=== PATIENT | male | born 1985 | race Caucasian/White ===

== ENCOUNTER → 2024-09-24 16:59 | Outpatient (REF) | payer BC, SELFPAY ==
[2024-09-24 17:38] LABS: % Eosinophils 6.5 % (0-6); % Immature Granulocytes 0.5 % (0-0.5); % Lymphocytes 25.3 % (20.5-51.1); % Monocytes 6.7 % (1.7-9.3); Absolute Basophils 0.1 10^3/uL (0-0.2); Absolute Eosinophils 0.5 10^3/uL (0-0.7); Absolute Lymphocytes 2.1 10^3/uL (1.2-3.4); Absolute Monocytes 0.6 10^3/uL (0.1-0.6); Hemoglobin 14.2 g/dL (13.0-18.0); Mean Corp Hgb Conc. 33.8 g/dL (33.0-37.0); Mean Corpuscular Volume 82.8 fL (80.0-94.0); Mean Platelet Volume 9.4 fL (7.4-10.4); Nucleated Red Blood Cells % 0 % (-); Platelet Count 400 10^3/uL (130-400); Red Blood Cell Count 5.07 10^6/uL (4.70-6.10); Red Cell Dist. Width 13.7 % (11.5-14.5); White Blood Cell Count 8.3 10^3/uL (4.8-10.8)
[2024-09-24 17:59] LABS: ALT (SGPT) 24 U/L (0-50); AST (SGOT) 23 U/L (17-59); Albumin 4.9 g/dl (3.5-5.0); Alkaline Phosphatase 61 U/L (38-126); Blood Urea Nitrogen 14 mg/dl (9-20); Calcium 9.7 mg/dl (8.4-10.2); Carbon Dioxide 28 mmol/L (22-30); Chloride 99 mmol/L (98-107); Glucose 83 mg/dl (70-99); Potassium 4.4 mmol/L (3.5-5.1); Sodium 138 mmol/L (135-145); Total Bilirubin 0.6 mg/dl (0.2-1.3); Total Protein 7.4 g/dl (6.3-8.2); eGFR > 60.00
[2024-09-24 18:15] LABS: Vitamin D, 25-OH*** 50.9 ng/mL (30-80)
[2024-09-24 18:29] LABS: TSH Reflex To Free T4 2.64 uIU/ml (0.47-4.68)
== END ==
LOC: REG 16:59
PROVIDERS: FAMILY PHYSICIAN Internal Medicine
DX: F33.1 Major depressive disorder, recurrent, moderate (principal); F41.1 Generalized anxiety disorder; R41.840 Attention and concentration deficit; Z51.81 Encounter for therapeutic drug level monitoring; Z79.899 Other long term (current) drug therapy
CPT/HCPCS: 36415; 80053; 82306; 84443; 85025

== ENCOUNTER → 2024-10-15 14:26 | Outpatient (REF) | payer BC, SELFPAY ==
[2024-10-15 15:33] LABS: % Basophils 0.9 % (0-2); % Eosinophils 2.3 % (0-6); % Immature Granulocytes 0.4 % (0-0.5); % Lymphocytes 22.3 % (20.5-51.1); % Monocytes 7.5 % (1.7-9.3); % Neutrophils 66.6 % (42.2-75.2); Absolute Basophils 0.1 10^3/uL (0-0.2); Absolute Eosinophils 0.2 10^3/uL (0-0.7); Absolute Lymphocytes 1.8 10^3/uL (1.2-3.4); Absolute Monocytes 0.6 10^3/uL (0.1-0.6); Absolute Neutrophils 5.3 10^3/uL (1.4-6.5); Hematocrit 42.4 % (39.0-52.0); Hemoglobin 14.4 g/dL (13.0-18.0); Mean Corpuscular Hgb 28.6 pg (27.0-31.0); Mean Corpuscular Volume 84.1 fL (80.0-94.0); Mean Platelet Volume 9.9 fL (7.4-10.4); Nucleated Red Blood Cells % 0 % (-); Platelet Count 412 10^3/uL (130-400); Red Blood Cell Count 5.04 10^6/uL (4.70-6.10); Red Cell Dist. Width 13.4 % (11.5-14.5)
[2024-10-15 16:02] LABS: ALT (SGPT) 28 U/L (0-50); AST (SGOT) 28 U/L (17-59); Alkaline Phosphatase 60 U/L (38-126); Blood Urea Nitrogen 17 mg/dl (9-20); Calcium 9.4 mg/dl (8.4-10.2); Carbon Dioxide 24 mmol/L (22-30); Chloride 103 mmol/L (98-107); Glucose 82 mg/dl (70-99); Potassium 4.4 mmol/L (3.5-5.1); Sodium 140 mmol/L (135-145); Total Bilirubin 0.4 mg/dl (0.2-1.3); Total Protein 7.5 g/dl (6.3-8.2); eGFR > 60.00
== END ==
LOC: REG 14:26
PROVIDERS: ATTENDING PHYSICIAN Internal Medicine; FAMILY PHYSICIAN Internal Medicine
DX: K57.92 Diverticulitis of intestine, part unspecified, without perforation or abscess without bleeding (principal)
CPT/HCPCS: 36415; 74177; 80053; 85025; Q9967

== ENCOUNTER 2025-03-19 18:22 | Emergency (ER) | payer BC, SELFPAY ==
[2025-03-19 18:48] LABS: % Basophils 0.6 % (0-2); % Eosinophils 1.5 % (0-6); % Immature Granulocytes 0.1 % (0-0.5); % Lymphocytes 32.6 % (20.5-51.1); % Monocytes 7.2 % (1.7-9.3); Absolute Basophils 0.1 10^3/uL (0-0.2); Absolute Eosinophils 0.1 10^3/uL (0-0.7); Absolute Lymphocytes 2.8 10^3/uL (1.2-3.4); Absolute Monocytes 0.6 10^3/uL (0.1-0.6); Hemoglobin 14.4 g/dL (13.0-18.0); Mean Corp Hgb Conc. 34.3 g/dL (33.0-37.0); Mean Corpuscular Volume 84.7 fL (80.0-94.0); Mean Platelet Volume 9.6 fL (7.4-10.4); Nucleated Red Blood Cells % 0 % (-); Platelet Count 353 10^3/uL (130-400); Red Blood Cell Count 4.96 10^6/uL (4.70-6.10); Red Cell Dist. Width 12.9 % (11.5-14.5); White Blood Cell Count 8.6 10^3/uL (4.8-10.8)
[2025-03-19 19:06] LABS: ALT (SGPT) 28 U/L (0-50); AST (SGOT) 26 U/L (17-59); Albumin 5.1 g/dl (3.5-5.0); Alkaline Phosphatase 62 U/L (38-126); Blood Urea Nitrogen 20 mg/dl (9-20); Calcium 9.2 mg/dl (8.4-10.2); Carbon Dioxide 23 mmol/L (22-30); Chloride 105 mmol/L (98-107); Glucose 97 mg/dl (70-99); Potassium 4.1 mmol/L (3.5-5.1); Sodium 139 mmol/L (135-145); Total Bilirubin 0.8 mg/dl (0.2-1.3); Total Protein 7.5 g/dl (6.3-8.2); eGFR > 60.00
[2025-03-19 19:16] LABS: Troponin I < 0.012 ng/ml
[2025-03-19 20:27] VITALS: BMI 34.4
--- NOTE | 2025-03-19 20:58 | ED.GENMED ---
History of Present Illness
<Javier Villar MD, Resident - Last Filed: 03/19/25 23:25>
General
Chief Complaint: Numbness
Time Seen by Provider: 03/19/25 20:56
History of Present Illness
History of Present Illness:
This is a 39-year-old male who presents to the ER complaining of bilateral toes numbness and tingling. Patient reports symptoms started 2 weeks ago while he was walking. He reports symptoms are intermittent. Today, he noticed left arm numbness.
In addition he reports headache and neck pain. Reports history of hypertensive urgency in the past. He denies fever, chills. He denies weakness bilateral upper and lower extremity.
Past History
<Javier Villar MD, Resident - Last Filed: 03/19/25 23:25>
Social History
Tobacco: Non-smoker
Alcohol: Occasional
Drug: None
Personal:
Phy Exam
<Javier Villar MD, Resident - Last Filed: 03/19/25 23:25>
General Physical Exam
General Presentation: well appearing and no apparent distress
General Mental: alert
Cardiovascular Exam
Cardiovascular Exam: regular rate/rhythm, no edema and no murmur
Pulmonary Exam
Pulmonary Exam: lungs clear and no respiratory distress
Neurological Exam
Neurological Exam: alert, oriented x3, CN II-XII intact, normal reflexs and speech normal
Musculoskeletal Exam
Musculoskeletal Exam: full ROM and no edema
Psychiatric Exam
Psychiatric Exam: normal mood/affect
Course
<Javier Villar MD, Resident - Last Filed: 03/19/25 23:25>
Orders/Labs/Results
Orders:
Orders
03/19/25 18:32
Electrocardiogram (*1) Urgent
Reason for Study: Vertigo / Dizzy
03/19/25 18:33
EKG- Treatment ONCE
03/19/25 18:43
CBC/With Diff [Complete Blood Count/With Diff] Urgent
Comprehensive Metabolic Panel Urgent
Troponin I Urgent
03/19/25 22:36
Troponin I Urgent
Abnormal Lab Results
03/19/25
18:43
Albumin 5.1 H g/dl
(3.5-5.0)
03/19/25 18:43
03/19/25 18:43
Vital Signs
Initial and Last Documented VS:
Initial Vital Signs
Temp Pulse Resp Pulse Ox
98.7 F 73 16 100
03/19/25 18:28 03/19/25 18:28 03/19/25 18:28 03/19/25 18:28
Last Documented Vital Signs
Temp Pulse Resp BP Pulse Ox
98.7 F 68 16 127/81 97
03/19/25 18:28 03/19/25 23:00 03/19/25 23:00 03/19/25 23:00 03/19/25 23:00
<Grady Llanes MD - Last Filed: 03/19/25 21:53>
Orders/Labs/Results
Orders:
Orders
03/19/25 18:32
Electrocardiogram (*1) Urgent
Reason for Study: Vertigo / Dizzy
03/19/25 18:33
EKG- Treatment ONCE
03/19/25 18:43
CBC/With Diff [Complete Blood Count/With Diff] Urgent
Comprehensive Metabolic Panel Urgent
Troponin I Urgent
03/19/25 22:36
Troponin I Urgent
Abnormal Lab Results
03/19/25
18:43
Albumin 5.1 H g/dl
(3.5-5.0)
03/19/25 18:43
03/19/25 18:43
Vital Signs
Initial and Last Documented VS:
Initial Vital Signs
Temp Pulse Resp Pulse Ox
98.7 F 73 16 100
03/19/25 18:28 03/19/25 18:28 03/19/25 18:28 03/19/25 18:28
Last Documented Vital Signs
Temp Pulse Resp BP Pulse Ox
98.7 F 68 16 127/81 97
03/19/25 18:28 03/19/25 23:00 03/19/25 23:00 03/19/25 23:00 03/19/25 23:00
<Javier Villar MD, Resident - Last Filed: 03/19/25 23:25>
MDM/Problems Addressed
MDM/Problems Addressed:
39-year-old male presents to the ED complaining of left arm and bilateral toe numbness and tingling sensation. In addition, he reports chest pain, and headache. EKG on presentation unremarkable. CBC, CMP unremarkable. Troponin normal. Will
recheck a troponin level, if negative will encourage outpatient workup with his PCP.
<Javier Villar MD, Resident - Last Filed: 03/19/25 23:25>
*Critical Care Note
Total Time (30-74mins, 75-104mins- exclusive of procedures): Not Applicable
ED Attending Note
<Javier Villar MD, Resident - Last Filed: 03/19/25 23:25>
-
Portions of this chart may have been created with voice recognition software.� Occasional wrong word or��sound alike� substitutions may have occurred due to the inherent limitations of voice recognition software.
<Grady Llanes MD - Last Filed: 03/19/25 21:53>
ED Attending Note
Patient seen and examined by attending physician: Yes
I performed a history and physical exam of patient and discussed management with resident, I reviewed resident's note and agree with documented findings and plan of care.: Yes
ED Attending Note:
I have seen and evaluated the patient with a [id number] encounter. I have spoken to the resident and involved in the medical history, the physical exam, medical decision making.
Evaluation and management service: agree unless noted differently below.
Results interpretation: agree unless noted differently below.
Focused HPI: 39-year-old male presents to the ER for evaluation of left arm paresthesias/numbness. Patient reports that earlier this afternoon he had an episode where his left hand felt numb and he had tingling in his left arm. He says that at the
same time he had some pressure in his left chest and neck. He says he had a headache. Denies any other complaints. He says that over the past week or 2 he noticed he had some occasional numbness in his toes particular in the right foot and that
he felt his feet are colder than usual.
Physical exam: Awake and alert not in distress. Vital signs normal. He has no cardiac rubs gallops or murmurs. Lungs clear to auscultation. Motor and sensory intact in all extremities�specifically intact radial, median, ulnar nerve distribution
left upper extremity with strong crm coordinator, intact objective sensory exam. Good pulses throughout including strong radial pulses bilaterally, popliteal, DP, PT pulses bilaterally. No edema in the extremities. Distal extremities are warm and
well-perfused with brisk capillary refill.
Medical Decision Makin-year-old male presents for evaluation after an episode of left arm numbness/tingling accompanied with some chest discomfort and neck pressure, headache. Vitals and exam as above. EKG shows sinus rhythm no acute
ischemia. Labs sent off including a CBC and a CMP which were unremarkable. Troponin undetectable. Check repeat troponin�if negative plan for discharge and PCP follow-up.
Discharge Plan
Departure
Patient Disposition: Home (Routine Discharge)
Date of Disposition: 03/19/25
Time of Disposition: 23:16
Patient with high blood pressure during this ER visit?: Yes
Discharge Problem:
Numbness and tingling in left arm
Prescriptions:
No Action
No Current Medications
0
Referrals:
Crow Bailey MD [Family Provider] - Follow up in 1 week
Activity Restrictions/Additional Instructions:
Please return for any worsening symptoms.
You may return at any time if you have further concerns.
Please follow up with your doctor at the first available appointment, preferably this week.
Thank you for choosing [facility].
Interventions
Interventions:
*General Assessment Last Done: 03/19/25 20:27
*Neglect/Abuse Screening Last Done: 03/19/25 20:27
*ED- Fall Risk Assessment Last Done: 03/19/25 20:27
*ED COVID-19 Vaccine History Last Done: 03/19/25 20:27
ED- Neurological Assessment Last Done: 03/19/25 20:50
Discharge Date and Time
Print Language: INDONESIAN
[2025-03-19 21:00] VITALS: BP 131/84
[2025-03-19 22:00] VITALS: BP 138/91
[2025-03-19 23:00] VITALS: BP 127/81
[2025-03-19 23:10] LABS: Troponin I < 0.012 ng/ml
== END 2025-03-19 23:37 | disposition home or self-care (01) ==
LOC: EMR 18:22
PROVIDERS: EMERGENCY PHYSICIAN Emergency Medicine; FAMILY PHYSICIAN Internal Medicine
DX: R20.2 Paresthesia of skin (principal); R20.0 Anesthesia of skin
CPT/HCPCS: 99284; 80053; 84484; 85025; 93005